=== PATIENT | female | born 1990 | race Caucasian/White ===

== ENCOUNTER 2020-07-30 14:53 | Emergency (ER) | payer OTHER ==
[~2020-07-30] VITALS: Ht 165.1 cm; Wt 80.0 kg
--- NOTE | 2020-07-30 15:03 | NUR ---
OB FLOOR CALLED TO MONITOR BABY IN ED
--- NOTE | 2020-07-30 15:30 | NUR ---
PT AMBULATED TO ROOM FROM TRIAGE. PT IS 32 WEEKS . PT STATED THAT OVER THE PAST COUPLE MONTHS SHE HAS BEEN FEELING VERY SOB AAND HAS BEEN EXPERIENCING NEAR SYNCOPAL EPISODES WHERE SHE STARTS SWEATING, FEELING DIZZY AND "EVERYTHING GOES BLACK." PT STATED THAT SHE HAS NEVER LOST CONSCIOUSNESS. PT STATED THAT LAST NIGHT SHE WAS CAMPING AND ALL OF A SUDDEN FELT A SHARP CHEST PAIN IN HER STERNUM THAT RESOLVED ON ITS OWN ABOUT 20 MINUTES LATER. PT STATED THAT SHE HAD COVID 5 MONTHS AGO. PT DENIES ANY CHEST PAIN TODAY.
[2020-07-30 15:41] LABS: BASOPHILS % (AUTO) 1 % (0-1); EOSINOPHILS % (AUTO) 1 % (1-7); LYMPHOCYTES % (AUTO) 16 % (22-44); MD NO; MEAN CORPUSCULAR HEMOGLOBIN 28.5 pg (27.0-34.8); MEAN CORPUSCULAR HGB CONC 34.6 g/dL (32.4-35.8); MEAN PLATELET VOLUME 7.7 fL (7.4-10.4); MONOCYTES % (AUTO) 6 % (2-9); NEUTROPHILS % (AUTO) 76 % (42-75); PLATELET COUNT 337 x10^3/uL (130-400); RED BLOOD COUNT 3.89 x10^6/uL (3.82-5.3); RED CELL DISTRIBUTION WIDTH 14.3 % (9.6-15.2)
[2020-07-30 15:52] LABS: ALANINE AMINOTRANSFERASE 22 U/L (12-78); ALBUMIN 2.6 g/dL (3.4-5.0); ANION GAP 9 mmol/L (5-15); CALCIUM 8.3 mg/dL (8.5-10.1); CHLORIDE 109 mmol/L (98-107); CREATININE 0.79 mg/dL (0.55-1.02)
[2020-07-30 15:57] LABS: ALKALINE PHOSPHATASE 101 U/L (45-117); BILIRUBIN,TOTAL 0.2 mg/dL (0.2-1.0); TOTAL PROTEIN 6.7 g/dL (6.4-8.2); TROPONIN I < 0.015 ng/mL (0.000-0.045)
[2020-07-30 16:17] VITALS: BP 128/88
--- NOTE | 2020-07-30 17:32 | NUR ---
DISCHARGE INSTRUCTIONS REVIEWED WITH PT. ALL QUESTIONS ANSWERED AT THIS TIME.
== END 2020-07-30 17:34 | disposition home or self-care (01) ==
LOC: ED 16:38
DX: O26.893 Other specified pregnancy related conditions, third trimester (principal); R06.00 Dyspnea, unspecified; R07.2 Precordial pain; Z3A.33 33 weeks gestation of pregnancy
CPT/HCPCS: 36415; 71045; 80053; 83690; 84484; 85025; 93005; 99285

== ENCOUNTER 2020-09-10 10:20 | Inpatient (IN) | payer OTHER ==
[~2020-09-10] VITALS: Ht 165.1 cm; Wt 83.1 kg
[2020-09-10] MEDS ORDERED: LACTATED RINGERS 1,000 ML IV SCH ×2 (10:30→17:30)
[2020-09-10] MEDS ORDERED: TERBUTALINE 1 MG/ML, 1ML SQ PRN (10:30)
[2020-09-10] MEDS ORDERED: OXYTOCIN 30U/ 0.9% NaCL 500ML 500 ML IV PRN (10:30)
[2020-09-10] MEDS ORDERED: TERBUTALINE 1 MG/ML, 1ML IVPush PRN (10:30)
[2020-09-10] MEDS ORDERED: METOCLOPRAMIDE 5 MG/ML, 2ML IVPush PRN (10:30)
[2020-09-10] MEDS ORDERED: D5%-LACTATED RINGERS 1,000 ML IV SCH (10:30)
[2020-09-10] MEDS ORDERED: SODIUM CITRATE/CITRIC ACID 30 ML UDC PO PRN (10:30)
[2020-09-10] MEDS ORDERED: OXYTOCIN 30U/ 0.9% NaCL 500ML 500 ML IV ONE (10:30)
[2020-09-10] MEDS ORDERED: FENTANYL PF 100 MCG/2ML IV PRN (10:30)
[2020-09-10] MEDS ORDERED: ONDANSETRON 2MG/ML, 2ML IVPush PRN (10:30)
[2020-09-10] MEDS ORDERED: FENTANYL PF 100 MCG/2ML IVPush PRN (10:30)
[2020-09-10] MEDS ORDERED: OXYTOCIN 30U/ 0.9% NaCL 500ML 500 ML ONE (10:38)
[2020-09-10] MEDS ORDERED: NEWBORN KIT ONE (10:38)
[2020-09-10 10:49] LABS: BASOPHILS % (AUTO) 1 % (0-1); EOSINOPHILS % (AUTO) 1 % (1-7); LYMPHOCYTES % (AUTO) 11 % (22-44); MEAN CORPUSCULAR HEMOGLOBIN 27.5 pg (27.0-34.8); MEAN CORPUSCULAR HGB CONC 33.7 g/dL (32.4-35.8); MEAN PLATELET VOLUME 8.2 fL (7.4-10.4); MONOCYTES % (AUTO) 5 % (2-9); NEUTROPHILS % (AUTO) 82 % (42-75); PLATELET COUNT 280 x10^3/uL (130-400); RED BLOOD COUNT 3.73 x10^6/uL (3.82-5.3); RED CELL DISTRIBUTION WIDTH 15.8 % (9.6-15.2)
[2020-09-10 10:53] LABS: MD NO
[2020-09-10] MEDS ORDERED: MISOPROSTOL 25 MCG TABLET VG PRN (11:00)
[2020-09-10] MEDS ORDERED: MISOPROSTOL 25 MCG TABLET ONE (11:02)
[2020-09-10] MEDS ORDERED: CALCIUM CARBONATE 500 MG TAB.CHEW ONE (11:02)
[2020-09-10] MEDS: CALCIUM CARBONATE 500 MG TAB.CHEW PO PRN ×2 (11:09→15:53)
[2020-09-10 11:19] VITALS: BP 121/80
[2020-09-10] MEDS ORDERED: FENTANYL/BUPIV./NS/PF 250 ML EPIDCONT SCH (17:30)
[2020-09-10] MEDS ORDERED: NALOXONE 0.4 MG/ML, 1ML IVPush PRN (17:30)
[2020-09-10] MEDS ORDERED: EPHEDRINE 50 MG/ML, 1ML IVPush PRN (17:30)
[2020-09-10] MEDS ORDERED: LACTATED RINGERS 1,000 ML IVBOLUS PRN (17:30)
[2020-09-10] MEDS ORDERED: BUPIVACAINE 0.25% ONE (17:42)
[2020-09-10] MEDS: IBUPROFEN 600 MG TABLET PO PRN (19:53)
[2020-09-10] MEDS: OXYTOCIN 30U/ 0.9% NaCL 500ML 500 ML IV SCH (19:54)
[2020-09-10] MEDS ORDERED: SIMETHICONE 80 MG CHEW TAB PO PRN (20:00)
[2020-09-10] MEDS ORDERED: OXYcodone IR 5MG TABLET PO PRN (20:00)
[2020-09-10] MEDS ORDERED: RHOGAM FROM BLOOD BANK 1 NOTE EA IM/IV ONE (20:00)
[2020-09-10] MEDS ORDERED: CARBOPROST TROMETHAMINE 250 MCG/ML, 1ML IM PRN (20:00)
[2020-09-10] MEDS ORDERED: DOCUSATE 100 MG CAPSULE PO PRN (20:00)
[2020-09-10] MEDS ORDERED: ONDANSETRON 2MG/ML, 2ML IV PRN (20:00)
[2020-09-10] MEDS ORDERED: METHYLERGONOVINE 0.2 MG/ML IM PRN (20:00)
[2020-09-10] MEDS ORDERED: MISOPROSTOL 200 MCG TABLET PR PRN ×2 (20:00)
[2020-09-10] MEDS ORDERED: ACETAMINOPHEN 325 MG TABLET PO PRN (20:00)
[2020-09-10 21:20] VITALS: BP 118/69
[2020-09-10 21:55] VITALS: BP 119/74
[2020-09-10] MEDS: OXYcodone/APAP 5/325MG TABLET PO PRN (21:56)
[2020-09-11 01:02] VITALS: BP 110/71
[2020-09-11 03:22] LABS: BASOPHILS % (AUTO) 1 % (0-1); EOSINOPHILS % (AUTO) 0 % (1-7); LYMPHOCYTES % (AUTO) 13 % (22-44); MEAN CORPUSCULAR HEMOGLOBIN 27.1 pg (27.0-34.8); MEAN CORPUSCULAR HGB CONC 33.6 g/dL (32.4-35.8); MONOCYTES % (AUTO) 5 % (2-9); NEUTROPHILS % (AUTO) 81 % (42-75); PLATELET COUNT 245 x10^3/uL (130-400); RED BLOOD COUNT 3.37 x10^6/uL (3.82-5.3); RED CELL DISTRIBUTION WIDTH 15.8 % (9.6-15.2)
[2020-09-11 03:23] LABS: MD NO
[2020-09-11 04:17] VITALS: BP 106/68
[2020-09-11] MEDS: IBUPROFEN 600 MG TABLET PO PRN ×2 (05:20→17:18)
[2020-09-11] MEDS: OXYTOCIN 30U/ 0.9% NaCL 500ML 500 ML IV SCH ×2 (06:00→16:00)
[2020-09-11 07:25] VITALS: BP 103/63
[2020-09-11] MEDS: OXYcodone/APAP 5/325MG TABLET PO PRN ×2 (07:47→17:18)
[2020-09-11] MEDS ORDERED: PRENATAL VIT/IRON/FA 1 EACH TABLET PO SCH (09:00)
[2020-09-11] MEDS ORDERED: OXYC1TAB14 PO (09:25)
[2020-09-11] MEDS ORDERED: IBUP-1222 PO (09:25)
[2020-09-11] MEDS ORDERED: FERR324T23 PO (09:25)
[2020-09-11] MEDS ORDERED: DOCU-131 PO (09:25)
[2020-09-11 12:55] VITALS: BP 111/71
[2020-09-11] MEDS ORDERED: FERROUS GLUCONATE 324 MG TABLET PO SCH (17:00)
== END 2020-09-11 17:40 | disposition home or self-care (01) | DRG 807 ==
LOC: LDIP 10:20 → 2NW 21:08
PROVIDERS: ADMIT Obstetrics & Gynecology Maternal & Fetal Medicine; ATTEND Obstetrics & Gynecology Maternal & Fetal Medicine
PROC: 10E0XZZ Delivery of Products of Conception, External Approach (ICD-10-PCS; principal; 2020-09-10)
PROC: 0HQ9XZZ Repair Perineum Skin, External Approach (ICD-10-PCS; 2020-09-10)
PROC: 10907ZC Drainage of Amniotic Fluid, Therapeutic from Products of Conception, Via Natural or Artificial Opening (ICD-10-PCS; 2020-09-10)
PROC: 10H07YZ Insertion of Other Device into Products of Conception, Via Natural or Artificial Opening (ICD-10-PCS; 2020-09-10)
PROC: 3E0P7VZ Introduction of Hormone into Female Reproductive, Via Natural or Artificial Opening (ICD-10-PCS; 2020-09-10)
PROC: 3E0234Z Introduction of Serum, Toxoid and Vaccine into Muscle, Percutaneous Approach (ICD-10-PCS; 2020-09-11)
DX: O99.02 Anemia complicating childbirth (principal); Z37.0 Single live birth; O26.893 Other specified pregnancy related conditions, third trimester; D64.9 Anemia, unspecified; O70.0 First degree perineal laceration during delivery; Z3A.39 39 weeks gestation of pregnancy; Z86.16 Personal history of COVID-19; Z67.91 Unspecified blood type, Rh negative; Z20.822 Contact with and (suspected) exposure to COVID-19; Z88.1 Allergy status to other antibiotic agents
CPT/HCPCS: 36415; 85025; 85461; 86592; 86850; 86900; 87635; G0378; J2790; J3010; J2590; J7120